=== PATIENT | female | born 1965 | race Caucasian/White ===

== ENCOUNTER 2016-07-03 15:57 | Emergency (ER) | payer SELFPAY ==
[2016-07-03 16:35] VITALS: BP 122/80
--- NOTE | 2016-07-03 17:02 | UC ---
Shoulder Pain HPI - HPI Summary HPI Summary: right shoulder strain when moving some boxes from a high shelf where they did not belong--muscle pain in scapula radiating in to side of neck - History of Current Complaint Chief Complaint: UCUpperExtremity Stated Complaint: RT SHOULDER/NECK/BACK INJURY Time Seen by Provider: 07/03/16 16:50 Hx Obtained From: Patient Hx Last Menstrual Period: takes depo ?: No Onset/Duration: Sudden Onset, Lasting Hours, Still Present Timing: Constant Severity Initially: Moderate Severity Currently: Moderate Location Of Pain: Is Discrete @ - above right scapula Pain Intensity: 6 Pain Scale Used: 0-10 Numeric Character: Spasmodic, Stiffness Alleviating Factor(s): Nothing Associated Signs And Symptoms: Positive: Negative Related History: Dominant Hand Right - Allergies/Home Medications Allergies/Adverse Reactions: Allergies Allergy/AdvReac Type Severity Reaction Status Date / Time Codeine Allergy Intermediate GI Upset Verified 10/18/15 12:36 Lisinopril Allergy Unknown Unknown Verified 10/18/15 12:36 Reaction Details Home Medications: Home Medications Meloxicam 7.5 mg PO 07/03/16 [History] PMH/Surg Hx/FS Hx/Imm Hx Previously Healthy: No Endocrine History Of: Reports: Diabetes - borderline per pt Denies: Thyroid Disease Cardiovascular History Of: Reports: Hypertension Denies: Cardiac Disorders, Pacemaker/ICD, Myocardial Infarction Respiratory History Of: Reports: Asthma Denies: COPD GI/ History Of: Denies: Ulcer, Renal Disease - Surgical History Surgical History: Yes Surgery Procedure, Year, and Place: cholecystectomy, appendectomy. Rt KNEE. Rt WRIST. Lt MIDDLE FINGER & 3RD FINGER - Family History Known Family History: Positive: None Family History: no reported cardiovascular issues in family lineage - Social History Occupation: Employed Full-time Lives: With Family Alcohol Use: Rare Substance Use Type: None Smoking Status (MU): Never Smoked Tobacco - Immunization History Most Recent Influenza Vaccination: Fall 2012 Most Recent Tetanus Shot: within 10 yrs Most Recent Pneumonia Vaccination: never Review of Systems Constitutional: Negative Skin: Negative Eyes: Negative ENT: Negative Respiratory: Negative Cardiovascular: Negative Gastrointestinal: Negative Genitourinary: Negative Motor: Negative Neurovascular: Negative Musculoskeletal: Negative, Myalgia - above right medial scapula radiating to right side of neck Neurological: Negative Psychological: Negative All Other Systems Reviewed And Are Negative: Yes Physical Exam Triage Information Reviewed: Yes Appearance: Well-Appearing, No Pain Distress, Well-Nourished Vital Signs: Initial Vital Signs Temp 98.8 F 07/03/16 16:28 Pulse 88 07/03/16 16:28 Resp 16 07/03/16 16:28 BP 122/80 07/03/16 16:28 Pulse Ox 97 07/03/16 16:28 Vital Signs Reviewed: Yes Eye Exam: Normal Eyes: Positive: Conjunctiva Clear ENT Exam: Normal ENT: Positive: Normal ENT inspection, Hearing grossly normal. Negative: Nasal congestion, Nasal drainage, Trismus, Muffled/hoarse voice Dental Exam: Normal Neck exam: Normal Neck: Positive: Supple, Nontender, No Lymphadenopathy Respiratory Exam: Normal Respiratory: Positive: Chest non-tender, Lungs clear, Normal breath sounds, No respiratory distress, No accessory muscle use Cardiovascular Exam: Normal Cardiovascular: Positive: RRR, No Murmur, Pulses Normal, Brisk Capillary Refill Musculoskeletal Exam: Normal Musculoskeletal: Positive: Strength Intact, ROM Intact, No Edema Neurological Exam: Normal Neurological: Positive: Alert, Muscle Tone Normal Psychological Exam: Normal Skin Exam: Normal Shoulder Course/Dx - Course Assessment/Plan: ice, mobic, muscle relaxers, follow with pt next week follow with pcp in 5-7 days if needed - Differential Dx/Diagnosis Differential Diagnosis/HQI/PQRI: Rotator Cuff Injury, Sprain, Strain, Tendonitis Provider Diagnoses: muscle strain right shoulder Discharge - Discharge Plan Condition: Stable Disposition: HOME Prescriptions: Cyclobenzaprine TAB* [Flexeril 10 MG TAB*] 10 mg PO TID PRN #21 tab PRN Reason: muscle spasm Meloxicam(NF) [Mobic(NF)] 7.5 mg PO BID PRN #60 tab PRN Reason: pain Patient Education Materials: Muscle Strain (ED), Ice Pack Application (ED) Referrals: Radha Ochoa MD [Primary Care Provider] - Mary Kay Armas MD [Medical Doctor] - 5 Days
== END 2016-07-03 17:10 | disposition home or self-care (01) ==
LOC: UCEAST 15:57
DX: S46.911A Strain of unspecified muscle, fascia and tendon at shoulder and upper arm level, right arm, initial encounter (principal); R73.03 Prediabetes; I10 Essential (primary) hypertension; J45.909 Unspecified asthma, uncomplicated; Z88.5 Allergy status to narcotic agent; X50.9XXA Other and unspecified overexertion or strenuous movements or postures, initial encounter
CPT/HCPCS: 99212; G0463

== ENCOUNTER → 2018-04-18 06:14 | Day surgery (SDC) | payer OTHER ==
[~2018-04-18 06:14] MED LIST: Acetaminophen TAB* 325 MG PO PRN; Cyclopentolate 1% OPTH.SOL* 2 ML BTL ONE; Ketorolac 0.5% OPHTH (NF) 0.5 % 5 ML BTL ONE; Lidocaine 1%* 5 ML VIAL ONE; Midazolam* 1 MG/ML 5 ML VIAL (5 MG) ONE; Neomycin/Polymy/Dex OPHTH.OIN* 3.5 GM ONE; Phenylephrine 2.5% OPTH.SOL* 2 ML BTL ONE; Povidone Iodine 5% OPTH* 30 ML BTL ONE; Tetracaine 0.5% OPTH.SOL 4 ML* 1 DROP BTL ONE; Tropicamide 1% OPTH.SOL* BTL ONE; Trypan Blue 0.06% SOL* 0.5 ML BTL ONE; acetaZOLAMIDE TAB* 250 MG ONE
[2018-04-18 08:20] VITALS: BP 144/86
--- NOTE | 2018-04-18 09:27 | OP ---
DATE OF OPERATION: 04/18/18 - [facility] DATE OF : 69 SURGEON: Roberto Oh MD. ANESTHESIA: Monitored anesthesia care. PREOPERATIVE DIAGNOSIS: Mature cataract, right eye. POSTOPERATIVE DIAGNOSIS: Mature cataract, right eye. OPERATIVE PROCEDURE: Extracapsular cataract extraction of the right eye with intraocular lens implant. IMPLANT: SN60WF 20.5 diopter lens to the right eye. COMPLICATIONS: None. DESCRIPTION OF PROCEDURE: The patient was given phenylephrine 2.5% and cyclopentolate 1% eye drops to the operative eye in the preoperative area. The patient was taken to the operating room, where a time-out was taken to identify the correct patient, site and side of surgery. The patient's right eye was prepped and draped in the usual sterile fashion with 5% Betadine. A second time -out was taken to verify the correct patient, side and site of surgery, and correct lens implant. A lid speculum was placed to the right eye. A 1 mm paracentesis blade was used to make a clear corneal incision in the superotemporal position. Preservative-free 1% lidocaine was injected in the anterior chamber. VisionBlue was then injected in the anterior chamber under gas bubble due to the mature cataract and poor red reflex. The VisionBlue was rinsed with BSS. Provisc was then injected into the anterior chamber. A 2.75 mm keratome blade was used to make a triplanar incision at the inferotemporal position. A cystotome initiated a capsulorrhexis, which was completed with MST forceps in a continuous and curvilinear manner. Hydrodissection of the lens was performed with BSS on a cannula. The lens could be spun in a capsular bag. The phacoemulsification handpiece was used with a [id number] technique to remove the nucleus with 53.78 CDE. The I/A handpiece then removed the residual cortical lens material. DisCoVisc was injected to inflate the capsular bag. The planned SN60WF 20.5 diopter lens was injected into the capsular bag. The residual DisCoVisc was removed from the eye with the I/A handpiece. The corneal incisions were hydrated and no leaks occurred at physiologic pressure around 20 mmHg per palpation. The lid speculum was removed and drapes were removed. Maxitrol ointment was placed to the surface of the operative eye. An adhesive patch and shield was then placed on the operative eye. The patient was taken to the postoperative area in stable condition. [id number]/[facility] #: [id number] MIYA
== END | disposition home or self-care (01) ==
LOC: OREAST 06:14
PROVIDERS: ATTEND Student in an Organized Health Care Education/Training Program
DX: H25.11 Age-related nuclear cataract, right eye (principal); E11.9 Type 2 diabetes mellitus without complications; J30.2 Other seasonal allergic rhinitis; J45.909 Unspecified asthma, uncomplicated; E78.00 Pure hypercholesterolemia, unspecified; E78.5 Hyperlipidemia, unspecified
CPT/HCPCS: A9270-GY; J2250; V2632

== ENCOUNTER 2018-09-19 10:36 | Day surgery (SDC) | payer OTHER ==
[~2018-09-19 10:36] MED LIST changes: -Lidocaine 1%* 5 ML VIAL ONE; +Lidocaine 1%** 5 ML VIAL ONE; +Midazolam* 1 MG/ML 2 ML VIAL (2 MG) ONE; -Midazolam* 1 MG/ML 5 ML VIAL (5 MG) ONE; -Phenylephrine 2.5% OPTH.SOL* 2 ML BTL ONE; +Phenylephrine OPHTH SOL 2.5%* 2 ML ONE; -Trypan Blue 0.06% SOL* 0.5 ML BTL ONE
[2018-09-19] MEDS ORDERED: Midazolam* 1 MG/ML 2 ML VIAL (2 MG) ONE (11:43)
[2018-09-19] MEDS ORDERED: fentaNYL* 50 MCG/ML 2 ML VIAL (100 MCG VIAL) ONE (11:43)
[2018-09-19 13:16] VITALS: BP 148/73
--- NOTE | 2018-09-19 14:11 | OP ---
DATE OF OPERATION: 09/19/18 - [facility] DATE OF : 69 SURGEON: Roberto Oh MD ANESTHESIA: Monitored anesthesia care. PRE-OP DIAGNOSIS: Retained lens material in the anterior chamber of the left eye. POST-OP DIAGNOSIS: Retained lens material in the anterior chamber of the left eye. OPERATIVE PROCEDURE: Anterior chamber washout of the left eye. IMPLANTS: None. COMPLICATIONS: None. DESCRIPTION OF PROCEDURE: The patient was given phenylephrine 2.5 % and cyclopentolate 1% eye drops to the operative eye in the preoperative area. The patient was taken to the operating room where a time-out was taken to identify the correct patient, site, and side of surgery. The patient's right eye was prepped and draped in the usual sterile fashion with 5% Betadine. A second time -out was taken to verify the correct patient, side, and site of surgery. A lid speculum was placed to the right eye. A 1 mm paracentesis blade was used to make a clear corneal incision at the superior position. Preservative-free 1% lidocaine was injected into the anterior chamber. Provisc was then injected into the anterior chamber. At this time, a small residual piece of nuclear material could be seen near the inferior angle. The approximate size of the nuclear material was around 1 mm x 0.5 mm. A 2.2 mm keratome blade was then used to make a triplanar incision at the 9 o'clock position. Provisc and BSS infusions were then used to bring the nuclear chip to the main incision, which could then be exposed with a bolus of Provisc. The anterior chamber was examined for any further residual lens material, but none was seen. The Provisc was then removed from the anterior chamber with a thorough washing with the I/A cannula. The corneal incisions were then hydrated and no leaks occurred at physiologic pressure around 20 mmHg per palpation. The lid speculum was removed and drapes were removed. Maxitrol ointment was then placed to the surface of the operative eye. An adhesive patch and shield was then placed on the operative eye. The patient was informed of the confirmation of a retained nuclear chip in the anterior chamber. The patient was taken to the postoperative area in stable condition. [id number]/[facility] #: [id number] [facility]
== END 2018-09-19 13:11 | disposition home or self-care (01) ==
LOC: OREAST 10:36
PROVIDERS: ATTEND Student in an Organized Health Care Education/Training Program
DX: H59.022 Cataract (lens) fragments in eye following cataract surgery, left eye (principal); E11.9 Type 2 diabetes mellitus without complications; I10 Essential (primary) hypertension; J45.909 Unspecified asthma, uncomplicated; E78.5 Hyperlipidemia, unspecified; M19.90 Unspecified osteoarthritis, unspecified site
CPT/HCPCS: A9270-GY; J2250; J3010